=== PATIENT | male | born 1950 | race Caucasian/White ===

== ENCOUNTER 2018-04-27 09:07 | Emergency (ER) | payer MEDICARE ==
[~2018-04-27] VITALS: Ht 175.3 cm; Wt 100.0 kg
[2018-04-27 09:10] VITALS: BP 121/72
== END 2018-04-27 14:30 | disposition left against medical advice (07) ==
LOC: ER 09:24
DX: Z53.21 Procedure and treatment not carried out due to patient leaving prior to being seen by health care provider (principal)

== ENCOUNTER 2018-04-28 03:39 | Emergency (ER) | payer MEDICARE ==
[~2018-04-28] VITALS: Ht 170.2 cm; Wt 68.0 kg
[2018-04-28 03:50] VITALS: BP 123/59
== END 2018-04-28 09:26 | disposition left against medical advice (07) ==
LOC: ER 03:39
DX: Z53.21 Procedure and treatment not carried out due to patient leaving prior to being seen by health care provider (principal)